=== PATIENT | male | born 1980 | race Caucasian/White ===

== ENCOUNTER 2019-01-06 20:08 | Emergency (ER) | payer BC, OTHER ==
[~2019-01-06] VITALS: Ht 177.8 cm; Wt 117.9 kg
[~2019-01-06 20:08] MED LIST: CLEOCIN HCL300 MG PO; IBUPROFEN 600600 M1 PO; NORCO 5-325 TA1 EACH PO
[2019-01-06] MEDS ORDERED: IBUPROFEN 600600 M1 PO (21:58)
[2019-01-06] MEDS ORDERED: ACETAMINOPHEN-1 EAC1 PO (21:58)
[2019-01-06] MEDS ORDERED: AZITHROMYCIN 2250 MG PO (21:58)
[2019-01-06 22:07] VITALS: BP 138/80
== END 2019-01-06 22:10 | disposition home or self-care (01) ==
LOC: ER 20:08
DX: J18.8 Other pneumonia, unspecified organism (principal); R53.83 Other fatigue; F17.210 Nicotine dependence, cigarettes, uncomplicated